=== PATIENT | female | born 1995 | race Caucasian/White ===

== ENCOUNTER 2020-05-29 22:12 | Emergency (ER) | payer OTHER ==
--- NOTE | 2020-05-29 23:09 | EDM.PDOC ---
ED HPI GENERAL MEDICAL PROBLEM - General Chief Complaint: General Stated Complaint: body aches Time Seen by Provider: 05/29/20 23:00 Source of Information: Reports: Patient History Limitations: Reports: No Limitations - History of Present Illness INITIAL COMMENTS - FREE TEXT/NARRATIVE: 25F 20-weeks presents for multiple symptoms. Notes generalized body- aches, abdominal cramping pains, mild chest tightness, and SOB since today. Light non-productive cough. 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 Musculoskeletal History: Reports: None Neurological History: Reports: None Psychiatric History: Reports: None Endocrine/Metabolic History: Reports: None Hematologic History: Reports: None Immunologic History: Reports: None Oncologic (Cancer) History: Reports: None Dermatologic History: Reports: None - Infectious Disease History Infectious Disease History: Reports: None - Past Surgical History Head Surgeries/Procedures: Reports: None HEENT Surgical History: Reports: Oral Surgery Other HEENT Surgeries/Procedures: dental surgery 10 years ago Female Surgical History: Reports: None Social & Family History - Tobacco Use Smoking Status *Q: Never Smoker Second Hand Smoke Exposure: No - Caffeine Use Caffeine Use: Reports: None - Recreational Drug Use Recreational Drug Use: No ED ROS GENERAL - Review of Systems Review Of Systems: Comprehensive ROS is negative, except as noted in HPI. ED EXAM, GENERAL - Physical Exam Exam: See Below Exam Limited By: No Limitations General Appearance: Alert, WD/WN, No Apparent Distress Throat/Mouth: Normal Inspection Head: Atraumatic Respiratory/Chest: No Respiratory Distress, Lungs Clear, Normal Breath Sounds, No Accessory Muscle Use Cardiovascular: Normal Peripheral Pulses GI/Abdominal: Soft, Non-Tender Extremities: Normal Inspection Neurological: Alert Psychiatric: Normal Affect, Normal Mood Skin Exam: Warm, Dry Course - Vital Signs Last Recorded V/S: Last Vital Signs Temp 98.2 F 05/29/20 22:44 Pulse 74 05/30/20 01:01 Resp 16 05/30/20 01:01 BP 110/58 L 05/30/20 01:01 Pulse Ox 99 05/30/20 01:01 - Orders/Labs/Meds Orders: Active Orders 24 hr Category Date Time Status EKG Documentation Completion [RC] STAT Care 05/29/20 23:08 Active Labs: Laboratory Tests 05/29/20 05/29/20 Range/Units 23:15 23:30 Urine Color YELLOW Urine Appearance CLEAR Urine pH 7.0 (5.0-8.0) Ur Specific [place] 1.010 (1.001-1.035) Urine Protein NEGATIVE (NEGATIVE) mg/dL Urine Glucose (UA) NEGATIVE (NEGATIVE) mg/dL Urine Ketones NEGATIVE (NEGATIVE) mg/dL Urine Occult Blood NEGATIVE (NEGATIVE) Urine Nitrite NEGATIVE (NEGATIVE) Urine Bilirubin NEGATIVE (NEGATIVE) Urine Urobilinogen 0.2 (<2.0) EU/dL Ur Leukocyte Esterase NEGATIVE (NEGATIVE) COVID-19 ([place]) NEGATIVE (NEGATIVE) - Re-Assessments/Exams Free Text/Narrative Re-Assessment/Exam: 05/30/20 03:02 Will get CXR, UA, covid-19 test. Will bedside POCUS Free Text/Narrative Re-Assessment/Exam: 05/30/20 03:03 Labs and imaging unremarkable, bedside POCUS normal FHR and normal appearing fetus appropraite for age. WIll d/c with OBGYN f/u early next week. Return precautions discussed. Departure - Departure Time of Disposition: 00:58 Disposition: Home, Self-Care 01 Condition: Good Clinical Impression: Body aches - Discharge Information *PRESCRIPTION DRUG MONITORING PROGRAM REVIEWED*: Not Applicable *COPY OF PRESCRIPTION DRUG MONITORING REPORT IN PATIENT REYNALDO: Not Applicable Instructions: Musculoskeletal Pain Referrals: Mitchel Joshi [Ordering Only Provider] - Anne Garcia MD [Primary Care Provider] - Forms: ED Department Discharge Additional Instructions: The following information is given to patients seen in the emergency department who are being discharged to home. This information is to outline your options for follow-up care. We provide all patients seen in our emergency department with a follow-up referral. The need for follow-up, as well as the timing and circumstances, are variable depending upon the specifics of your emergency department visit. If you don't have a primary care physician on staff, we will provide you with a referral. We always advise you to contact your personal physician following an emergency department visit to inform them of the circumstance of the visit and for follow-up with them and/or the need for any referrals to a consulting specialist. The emergency department will also refer you to a specialist when appropriate. This referral assures that you have the opportunity for follow-up care with a specialist. All of these measure are taken in an effort to provide you with optimal care, which includes your follow-up. Under all circumstances we always encourage you to contact your private physician who remains a resource for coordinating your care. When calling for follow-up care, please make the office aware that this follow-up is from your recent emergency room visit. If for any reason you are refused follow-up, please contact the [facility] Emergency Department at and asked to speak to the emergency department charge nurse. Over the counter medications as needed for pain. Follow up with primary care provider Sepsis Event Note (ED) - Evaluation Sepsis Screening Result: No Definite Risk - Focused Exam Vital Signs: Vital Signs Temp Pulse Resp BP Pulse Ox 05/30/20 01:01 74 16 110/58 L 99 05/29/20 22:44 98.2 F 105 H 18 139/73 98 - My Orders Last 24 Hours: My Active Orders 05/29/20 23:08 EKG Documentation Completion [RC] STAT - Assessment/Plan Last 24 Hours: My Active Orders 05/29/20 23:08 EKG Documentation Completion [RC] STAT
--- NOTE | 2020-05-29 23:42 | CR ---
INDICATION: Chest pain, shortness of breath, body aches, TECHNIQUE: Chest radiograph 1 view COMPARISON: None FINDINGS: Moderate degradation of image quality noted due to body habitus. Mediastinum: The mediastinum is normal in appearance. The heart silhouette is normal in size and morphology. Lung: Both lungs are unremarkable in appearance with small lung volumes. No sign of pleural effusion seen. No pneumothorax is identified. Bone and Soft tissue: Unremarkable for age. IMPRESSION: 1. No acute cardiopulmonary disease is seen. Dictated by: Jamie Aguilar MD @ 05/29/2020 23:40:57 (Electronically Signed)
== END 2020-05-30 01:08 | disposition home or self-care (01) ==
LOC: MW.ED 22:12
DX: O99.89 Other specified diseases and conditions complicating pregnancy, childbirth and the puerperium (principal); R52 Pain, unspecified; Z88.1 Allergy status to other antibiotic agents; Z20.828 Contact with and (suspected) exposure to other viral communicable diseases; Z3A.20 20 weeks gestation of pregnancy
CPT/HCPCS: 71045; 71045-26; 81003; 93005; 99282; 99285-25; U0002

== ENCOUNTER 2020-09-29 00:14 | Inpatient (IN) | payer OTHER ==
[2020-09-29] MEDS ORDERED: Tranexamic Acid 1,000 MG in Sodium Chloride 0.9% 100 ML IV PRN (01:17)
[2020-09-29] MEDS ORDERED: Sodium Chloride 0.9% 2.5 ML Syringe FLUSH PRN (01:17)
[2020-09-29] MEDS ORDERED: Sodium Chloride 0.9% 10 ML SDV IV PRN (01:17)
[2020-09-29] MEDS ORDERED: Ondansetron 4 MG/2 ML SDV IVPUSH PRN (01:17)
[2020-09-29] MEDS ORDERED: Lidocaine 1% 50 ML MDV INJECT PRN (01:17)
[2020-09-29] MEDS ORDERED: Misoprostol 200 MCG Tab PO PRN (01:17)
[2020-09-29] MEDS ORDERED: Carboprost Tromethamine 250 MCG/1 ML Amp IM PRN (01:17)
[2020-09-29] MEDS ORDERED: Butorphanol 1 MG/ML SDV IVPUSH PRN (01:17)
[2020-09-29] MEDS ORDERED: Sodium Chloride 0.9% 10 ML Syringe FLUSH PRN (01:17)
[2020-09-29] MEDS ORDERED: Water For Irrigation,Sterile 1,000 ML Container IRR PRN (01:17)
[2020-09-29] MEDS ORDERED: Nalbuphine 10 MG/1 ML Vial IVPUSH PRN (01:17)
[2020-09-29] MEDS ORDERED: hydrOXYzine Pamoate 25 MG Cap PO PRN (01:23)
[2020-09-29] MEDS ORDERED: Terbutaline 1 MG/ML SDV SUBCUT PRN (01:25)
[2020-09-29] MEDS ORDERED: Oxytocin/0.9 % Sodium Chloride 30 UNIT/500 ML BAG IV SCH ×2 (01:30)
[2020-09-29] MEDS: Lactated Ringers 1,000 ML IV SCH (01:44)
[2020-09-29] MEDS: Misoprostol 25 MCG (1/4 of 100 MCG) Tab PO PRN ×4 (01:51→17:19)
[2020-09-29] MEDS: Misoprostol 25 MCG (1/4 of 100 MCG) Tab VAG PRN ×5 (01:52→17:19)
--- NOTE | 2020-09-29 08:11 | PCM.LDHP ---
L&D History of Present Illness - General Date of Service: 09/29/20 Admit Problem/Dx: Patient Status Order with Admit Dx/Problem 09/29/20 01:17 Patient Status [ADT] Routine Admission Diagnosis/Problem Admission Diagnosis/Problem 09/29/20 08:04 presenting to L&D for IOL at 38 weeks (HOLLY: 10/13/20) due to GDMA2 (currently taking 500 mg metformin TID) and Chronic HTN (treated with Procardia XL 30 mg BID; she is also taking 81 mg aspirin daily). Most recent growth ultrasound on 09/15/20 noted EFW 2982 grams (68th percentile). AB+, Rubella non-immune, and GBS negative. SVE 2cm/60%/-3, soft, posterior per nurse report. Source of Information: Patient History Limitations: Reports: No Limitations - History of Present Illness Pain Score: 6 - Related Data Allergies/Adverse Reactions: Allergies Allergy/AdvReac Type Severity Reaction Status Date / Time cefaclor [From [facility]] Allergy Rash Verified 09/26/20 10:12 Home Medications: Home Meds NIFEdipine [Nifedipine ER] 30 mg PO BID 05/29/20 [History] Aspirin [Low Dose Aspirin EC] 81 mg PO DAILY 08/25/20 [History] metFORMIN [Glucophage] 500 mg PO TIDAC 08/25/20 [History] Pnv No.95/Ferrous Fum/Folic AC [ Vitamin Tablet] 1 tab PO DAILY 09/07/20 [History] Past Medical History - Past Health History Medical/Surgical History: Denies Medical/Surgical History HEENT History: Reports: None Cardiovascular History: Reports: None Respiratory History: Reports: None Gastrointestinal History: Reports: None Genitourinary History: Reports: 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: Musculoskeletal History: Reports: None Neurological History: Reports: None Psychiatric History: Reports: None Endocrine/Metabolic History: Reports: None, Diabetes, Type II Hematologic History: Reports: None Immunologic History: Reports: None Oncologic (Cancer) History: Reports: None Dermatologic History: Reports: None - Infectious Disease History Infectious Disease History: Reports: None - Past Surgical History Head Surgeries/Procedures: Reports: None HEENT Surgical History: Reports: Oral Surgery Other HEENT Surgeries/Procedures: dental surgery 10 years ago Cardiovascular Surgical History: Reports: None Respiratory Surgical History: Reports: None GI Surgical History: Reports: None Female Surgical History: Reports: None Endocrine Surgical History: Reports: None Neurological Surgical History: Reports: None Musculoskeletal Surgical History: Reports: None Oncologic Surgical History: Reports: None Dermatological Surgical History: Reports: None Social & Family History - Family History HEENT: Reports: None Cardiac: Reports: Hypertension Respiratory: Reports: None GI: Reports: None : Reports: None OBGYN: Reports: None Musculoskeletal: Reports: None Neurological: Reports: None Psychiatric: Reports: None Endocrine/Metabolic: Reports: Diabetes, type II Hematologic: Reports: None Immunologic: Reports: None Dermatologic: Reports: None Oncologic: Reports: None - Tobacco Use Tobacco Use Status *Q: Never Tobacco User Second Hand Smoke Exposure: No - Caffeine Use Caffeine Use: Reports: Coffee, Soda - Recreational Drug Use Recreational Drug Use: No H&P Review of Systems - Review of Systems: Review Of Systems: See Below General: Reports: No Symptoms HEENT: Reports: No Symptoms Pulmonary: Reports: No Symptoms Cardiovascular: Reports: No Symptoms Gastrointestinal: Reports: No Symptoms Genitourinary: Reports: No Symptoms Musculoskeletal: Reports: No Symptoms Skin: Reports: No Symptoms Psychiatric: Reports: No Symptoms Neurological: Reports: No Symptoms Hematologic/Lymphatic: Reports: No Symptoms Immunologic: Reports: No Symptoms L&D Exam - Exam Exam: See Below - Vital Signs Weight: 273 lb - OB Specific Contraction Intensity: Moderate Movement: Active Heart Tones: Present Heart Rate (FHR) Variability: Moderate (6-25 bmp) Presentation: Vertex - Sanchez Score Sanchez Score Cervix Position: Posterior Sanchez Score Consistency: Soft Sanchez Score Effacement: 51-70% Sanchez Score Dilation: 1-2 cm Sanchez Score 's Station: -3 Sanchez Score Total: 5 - Exam General: Alert, Oriented Lungs: Clear to Auscultation, Normal Respiratory Effort Cardiovascular: Regular Rate, Regular Rhythm GI/Abdominal Exam: Soft, Non-Tender Rectal Exam: Deferred Genitourinary: Deferred Back Exam: Normal Inspection, Full Range of Motion Extremities: Normal Inspection, Normal Range of Motion, Non-Tender, Normal Capillary Refill Skin: Warm, Dry, Intact Neurological: Strength Equal Bilateral, Normal Gait, Normal Speech, Normal Tone, Sensation Intact Psychiatric: Alert, Normal Affect, Normal Mood - Patient Data Lab Results Last 24 hrs: Laboratory Results - last 24 hr 09/29/20 09/29/20 09/29/20 Range/Units 00:50 00:50 02:05 WBC 10.39 (4.0-11.0) K/uL RBC 4.32 (4.30-5.90) M/uL Hgb 11.6 L (12.0-16.0) g/dL Hct 35.9 L (36.0-46.0) % MCV 83.1 (80.0-98.0) fL MCH 26.9 L (27.0-32.0) pg MCHC 32.3 (31.0-37.0) g/dL RDW Std Deviation 50.6 (28.0-62.0) fl RDW Coeff of Pop 17 H (11.0-15.0) % Plt Count 240 (150-400) K/uL MPV 10.90 (7.40-12.00) fL Nucleated RBC % 0.0 /100WBC Nucleated RBCs # 0 K/uL POC Glucose 182 H (60-110) mg/dL Blood Type AB POSITIVE Antibody Screen NEGATIVE 09/29/20 Range/Units 03:35 WBC (4.0-11.0) K/uL RBC (4.30-5.90) M/uL Hgb (12.0-16.0) g/dL Hct (36.0-46.0) % MCV (80.0-98.0) fL MCH (27.0-32.0) pg MCHC (31.0-37.0) g/dL RDW Std Deviation (28.0-62.0) fl RDW Coeff of Pop (11.0-15.0) % Plt Count (150-400) K/uL MPV (7.40-12.00) fL Nucleated RBC % /100WBC Nucleated RBCs # K/uL POC Glucose 170 H (60-110) mg/dL Blood Type Antibody Screen Result Diagrams: 09/29/20 00:50 - Problem List (1) Supervision of normal IUP (intrauterine ) in primigravida SNOMED Code(s): 26823037, 053518247, 493967609, 072204660 ICD Code: Z34.00 - ENCNTR FOR SUPRVSN OF NORMAL FIRST , UNSP TRIMESTER Status: Acute Priority: High Current Visit: Yes Qualifiers: Trimester: third trimester Qualified Code(s): Z34.03 - Encounter for supervision of normal first , third trimester (2) Chronic hypertension affecting SNOMED Code(s): 78643735 ICD Code: O10.919 - UNSP PRE-EXISTING HTN COMP , UNSP TRIMESTER Status: Acute Priority: High Current Visit: No (3) Gestational diabetes mellitus (GDM) treated with oral hypoglycemic therapy SNOMED Code(s): 44219573 ICD Code: O24.415 - GESTATNL DIABETES IN PREG, CTRL BY ORAL HYPOGLYCEMIC DRUGS Status: Acute Priority: High Current Visit: No Problem List Initiated/Reviewed/Updated: Yes Orders Last 24hrs: Active Orders 24 hr Category Date Time Status Patient Status [ADT] Routine ADT 09/29/20 01:17 Active Bedrest Bathroom Privileges [RC] ASDIRECTED Care 09/29/20 01:25 Active May Shower [RC] ASDIRECTED Care 09/29/20 01:17 Active Notify Provider [RC] PRN Care 09/29/20 01:17 Active Notify Provider [RC] PRN Care 09/29/20 01:25 Active Notify Provider [RC] PRN Care 09/29/20 01:25 Active Notify Provider [RC] STAT Care 09/29/20 01:25 Active Oxygen Therapy [RC] ASDIRECTED Care 09/29/20 01:25 Active Up ad Valentina [RC] ASDIRECTED Care 09/29/20 01:17 Active Vital Signs [RC] PER UNIT ROUTINE Care 09/29/20 01:17 Active Vital Signs [RC] PER UNIT ROUTINE Care 09/29/20 01:25 Active Clear Liquid Diet [DIET] Diet 09/29/20 Breakfast Active RPR (SYPHILIS SERO) W/ RFLX [REF] Routine Lab 09/29/20 00:50 Received Butorphanol [Stadol] Med 09/29/20 01:17 Active 1 mg IVPUSH Q1H PRN Carboprost Tromethamine [Hemabate DS] Med 09/29/20 01:17 Active 250 mcg IM ASDIRECTED PRN Lactated Ringers [Ringers, Lactated] 1,000 ml Med 09/29/20 01:30 Active IV ASDIRECTED Lidocaine 1% [Xylocaine 1%] Med 09/29/20 01:17 Active 50 ml INJECT ONETIME PRN Nalbuphine [Nubain] Med 09/29/20 01:17 Active 10 mg IVPUSH Q1H PRN Ondansetron [Zofran] Med 09/29/20 01:17 Active 4 mg IVPUSH Q6H PRN Oxytocin/0.9 % Sodium Chloride [Oxytocin 30 Unit/500 ML Med 09/29/20 01:30 Active -NS] 30 unit in 500 ml IV TITRATE Oxytocin/0.9 % Sodium Chloride [Oxytocin 30 Unit/500 ML Med 09/29/20 01:30 Active -NS] 30 unit in 500 ml IV TITRATE Sodium Chloride 0.9% [Normal Saline] Med 09/29/20 01:17 Active 10 ml IV ASDIRECTED PRN Sodium Chloride 0.9% [Saline Flush] Med 09/29/20 01:17 Active 10 ml FLUSH ASDIRECTED PRN Sodium Chloride 0.9% [Saline Flush] Med 09/29/20 01:17 Active 2.5 ml FLUSH ASDIRECTED PRN Terbutaline [Brethine] Med 09/29/20 01:25 Active 0.25 mg SUBCUT ASDIRECTED PRN Tranexamic Acid [Cyklokapron] 1,000 mg Med 09/29/20 01:17 Active Sodium Chloride 0.9% [Normal Saline] 100 ml IV ONETIME Water For Irrigation,Sterile [Sterile Water for Med 09/29/20 01:17 Active Irrigation] 1,000 ml IRR ASDIRECTED PRN hydrOXYzine pamoate [Vistaril] Med 09/29/20 01:23 Active 50 mg PO ONETIME PRN miSOPROStoL [Cytotec] Med 09/29/20 01:17 Active 200 mcg PO ONETIME PRN miSOPROStoL [Cytotec] Med 09/29/20 01:25 Active 25 mcg PO Q4H PRN miSOPROStoL [Cytotec] Med 09/29/20 01:25 Active 25 mcg VAG Q4H PRN Scalp Electrode [WOMSER] Per Unit Routine Oth 09/29/20 01:17 Ordered Medication Administration Instruction [OM.PC] Q3H Oth 09/29/20 01:30 Ordered Peripheral IV Insertion Adult [OM.PC] Routine Oth 09/29/20 01:17 Ordered Resuscitation Status Routine Resus Stat 09/29/20 01:17 Ordered Medication Orders Butorphanol Tartrate (Stadol) 1 mg IVPUSH Q1H PRN PRN Reason: Pain Last Admin: 09/29/20 07:57 Dose: 1 mg Documented by: TY Carboprost Tromethamine (Hemabate Ds) 250 mcg IM ASDIRECTED PRN PRN Reason: Post Hemorrhage Hydroxyzine Pamoate (Vistaril) 50 mg PO ONETIME PRN PRN Reason: Sleep Oxytocin/Sodium Chloride (Oxytocin 30 Unit/500 Ml-Ns) 30 unit in 500 mls @ 999 mls/hr IV TITRATE RICHARD Tranexamic Acid 1,000 mg/ (Sodium Chloride) 110 mls @ 660 mls/hr IV ONETIME PRN PRN Reason: Bleeding Lactated Ringer's (Ringers, Lactated) 1,000 mls @ 150 mls/hr IV ASDIRECTED RICHARD Last Infusion: 09/29/20 02:09 Dose: 0 mls/hr Documented by: Admin: 09/29/20 01:44 Dose: 150 mls/hr Documented by: MEGAN Oxytocin/Sodium Chloride (Oxytocin 30 Unit/500 Ml-Ns) 30 unit in 500 mls @ 2 mls/hr IV TITRATE RICHARD; Protocol Lidocaine HCl (Xylocaine 1%) 50 ml INJECT ONETIME PRN PRN Reason: Laceration repair Misoprostol (Cytotec) 200 mcg PO ONETIME PRN PRN Reason: Post Hemorrhage Misoprostol (Cytotec) 25 mcg VAG Q4H PRN PRN Reason: Cervical Ripening Last Admin: 09/29/20 01:52 Dose: 25 mcg Documented by: MEGAN Misoprostol (Cytotec) 25 mcg PO Q4H PRN PRN Reason: Cervical Ripening Last Admin: 09/29/20 01:51 Dose: 25 mcg Documented by: MEGAN Nalbuphine HCl (Nubain) 10 mg IVPUSH Q1H PRN PRN Reason: Pain (severe 7-10) Ondansetron HCl (Zofran) 4 mg IVPUSH Q6H PRN PRN Reason: Nausea/Vomiting Sodium Chloride (Saline Flush) 10 ml FLUSH ASDIRECTED PRN PRN Reason: Keep Vein Open Sodium Chloride (Saline Flush) 2.5 ml FLUSH ASDIRECTED PRN PRN Reason: Keep Vein Open Sodium Chloride (Normal Saline) 10 ml IV ASDIRECTED PRN PRN Reason: IV Use Sterile Water (Sterile Water For Irrigation) 1,000 ml IRR ASDIRECTED PRN PRN Reason: delivery Terbutaline Sulfate (Brethine) 0.25 mg SUBCUT ASDIRECTED PRN PRN Reason: Tacysystole Assessment/Plan Comment:: Admit A: presenting to L&D for IOL at 38 weeks (HOLLY: 10/13/20) due to GDMA2 (currently taking 500 mg metformin TID) and Chronic HTN (treated with Procardia XL 30 mg BID; she is also taking 81 mg aspirin daily). Most recent growth ultrasound on 09/15/20 noted EFW 2982 grams (68th percentile). AB+, Rubella non-immune, and GBS negative. SVE 2cm/60%/-3, soft, posterior per nurse report. P: Anticipate ; epidural PRN; blood glucose q4hr or symptomatic; Dr. Miramontes updated
[2020-09-29] MEDS: NIFEdipine 30 MG Tab.ER PO SCH ×2 (08:32→20:25)
[2020-09-30] MEDS: Lactated Ringers 1,000 ML IV SCH (00:59)
--- NOTE | 2020-09-30 08:04 | PCM.PNLD ---
Labor Progress Note - VS & Meds Vital Signs: Last Vital Signs Temp Pulse Resp BP 146/93 H 09/29/20 20:25 Pulse Ox Active Medications: Current Medications Butorphanol Tartrate (Stadol) 1 mg IVPUSH Q1H PRN PRN Reason: Pain Last Admin: 09/29/20 07:57 Dose: 1 mg Documented by: Carboprost Tromethamine (Hemabate Ds) 250 mcg IM ASDIRECTED PRN PRN Reason: Post Hemorrhage Hydroxyzine Pamoate (Vistaril) 50 mg PO ONETIME PRN PRN Reason: Sleep Last Admin: 09/29/20 21:56 Dose: 50 mg Documented by: Oxytocin/Sodium Chloride (Oxytocin 30 Unit/500 Ml-Ns) 30 unit in 500 mls @ 999 mls/hr IV TITRATE RICHARD Tranexamic Acid 1,000 mg/ (Sodium Chloride) 110 mls @ 660 mls/hr IV ONETIME PRN PRN Reason: Bleeding Lactated Ringer's (Ringers, Lactated) 1,000 mls @ 150 mls/hr IV ASDIRECTED RICHARD Last Admin: 09/30/20 00:59 Dose: 75 mls/hr Documented by: Oxytocin/Sodium Chloride (Oxytocin 30 Unit/500 Ml-Ns) 30 unit in 500 mls @ 2 mls/hr IV TITRATE RICHARD; Protocol Lidocaine HCl (Xylocaine 1%) 50 ml INJECT ONETIME PRN PRN Reason: Laceration repair Misoprostol (Cytotec) 200 mcg PO ONETIME PRN PRN Reason: Post Hemorrhage Misoprostol (Cytotec) 25 mcg VAG Q4H PRN PRN Reason: Cervical Ripening Last Admin: 09/29/20 17:19 Dose: 25 mcg Documented by: Misoprostol (Cytotec) 25 mcg PO Q4H PRN PRN Reason: Cervical Ripening Last Admin: 09/29/20 17:19 Dose: 25 mcg Documented by: Nalbuphine HCl (Nubain) 10 mg IVPUSH Q1H PRN PRN Reason: Pain (severe 7-10) Last Admin: 09/29/20 22:53 Dose: 10 mg Documented by: Nifedipine (Procardia Xl) 30 mg PO BID RICHARD Last Admin: 09/29/20 20:25 Dose: 30 mg Documented by: Ondansetron HCl (Zofran) 4 mg IVPUSH Q6H PRN PRN Reason: Nausea/Vomiting Sodium Chloride (Saline Flush) 10 ml FLUSH ASDIRECTED PRN PRN Reason: Keep Vein Open Sodium Chloride (Saline Flush) 2.5 ml FLUSH ASDIRECTED PRN PRN Reason: Keep Vein Open Sodium Chloride (Normal Saline) 10 ml IV ASDIRECTED PRN PRN Reason: IV Use Sterile Water (Sterile Water For Irrigation) 1,000 ml IRR ASDIRECTED PRN PRN Reason: delivery Terbutaline Sulfate (Brethine) 0.25 mg SUBCUT ASDIRECTED PRN PRN Reason: Tacysystole - Uterine Contractions Uterine Monitoring Mode: External [place] Contraction Intensity: Moderate Uterine Resting Tone: Soft - Monitoring Heart Rate (FHR) Baseline: 140 Heart Rate (FHR) Variability: Moderate (6-25 bmp) Accelerations: Present, 15x15 Decelerations: None - Vaginal Exam Dilation (cm): 2-3 Effacement (Percent): 70 Station: -3 Cervical Position: Posterior - Labor Progress (Free Text) Labor Progress: After four doses of cytotec (at 0152, 0917, 1309, and 1719), patient's cervix was 2-3cm/70%/-3, posterior; no significant change since the first dose. 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 After consultation with Dr. Miramontes, it was decided to let patient sleep through the night and resume active induction in AM. This AM, patient reports having slept well, still feeling contractions and good movement. Cervix unchanged. Dr. Miramontes will come to assess patient to see whether he would be able to place a Cook catheter and determine what his plan is moving forward.
[2020-09-30] MEDS ORDERED: Citric Acid/Sodium Citrate Solution 30 ML Cup PO ONE (10:43)
[2020-09-30] MEDS ORDERED: Oxytocin/0.9 % Sodium Chloride 30 UNIT/500 ML BAG IV SCH (10:45)
[2020-09-30] MEDS ORDERED: Lactated Ringers 1,000 ML IV SCH ×2 (10:45→16:45)
--- NOTE | 2020-09-30 13:34 | PCM.PREANE ---
Preanesthetic Assessment - Anesthesia/Transfusion/Family Hx Anesthesia History: Prior Anesthesia Without Reaction Family History of Anesthesia Reaction: No Transfusion History: No Prior Transfusion(s) Type of Transfusion Reactions: Reports: Unknown - Review of Systems General: No Symptoms Pulmonary: No Symptoms Cardiovascular: No Symptoms Gastrointestinal: Abdominal Pain Neurological: No Symptoms Other: Reports: None - Physical Assessment NPO Status Date: 09/29/20 Vital Signs: Last Vital Signs Temp Pulse Resp BP 146/93 H 09/29/20 20:25 Pulse Ox Height: 5 ft 4 in Weight: 123.831 kg ASA Class: 2 Mental Status: Alert & Oriented x3 Airway Class: Mallampati = 2 Dentition: Reports: Normal Dentition ROM/Head Extension: Full Lungs: Clear to Auscultation, Normal Respiratory Effort Cardiovascular: Regular Rate, Regular Rhythm - Lab Values: Laboratory Last Values WBC 10.39 K/uL (4.0-11.0) 09/29/20 00:50 RBC 4.32 M/uL (4.30-5.90) 09/29/20 00:50 Hgb 11.6 g/dL (12.0-16.0) L 09/29/20 00:50 Hct 35.9 % (36.0-46.0) L 09/29/20 00:50 MCV 83.1 fL (80.0-98.0) 09/29/20 00:50 MCH 26.9 pg (27.0-32.0) L 09/29/20 00:50 MCHC 32.3 g/dL (31.0-37.0) 09/29/20 00:50 RDW Std Deviation 50.6 fl (28.0-62.0) 09/29/20 00:50 RDW Coeff of Pop 17 % (11.0-15.0) H 09/29/20 00:50 Plt Count 240 K/uL (150-400) 09/29/20 00:50 MPV 10.90 fL (7.40-12.00) 09/29/20 00:50 Nucleated RBC % 0.0 /100WBC 09/29/20 00:50 Nucleated RBCs # 0 K/uL 09/29/20 00:50 POC Glucose 88 mg/dL (60-110) 09/30/20 07:48 Blood Type AB POSITIVE 09/29/20 00:50 Antibody Screen NEGATIVE 12/07/20 00:50 - Allergies Allergies/Adverse Reactions: Allergies Allergy/AdvReac Type Severity Reaction Status Date / Time cefaclor [From Ceclor] Allergy Rash Verified 09/26/20 10:12 - Blood Blood Available: Yes - Anesthesia Plan Pre-Op Medication Ordered: Antacids - Acknowledgements Anesthesia Type Planned: Spinal Pt an Appropriate Candidate for the Planned Anesthesia: Yes Alternatives and Risks of Anesthesia Discussed w Pt/Guardian: Yes Pt/Guardian Understands and Agrees with Anesthesia Plan: Yes Additional Comments: , C section for failed induction. PMH sig for chronic hypertension and gestational diabetes. On metformin, procardia and ASA, COVID negative, 273#, allergy to Ceclor. 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: Musculoskeletal History: Reports: None Neurological History: Reports: None Psychiatric History: Reports: None Endocrine/Metabolic History: Reports: None, Diabetes, Type II Hematologic History: Reports: None Immunologic History: Reports: None Oncologic (Cancer) History: Reports: None Dermatologic History: Reports: None - Infectious Disease History Infectious Disease History: Reports: None - Past Surgical History Head Surgeries/Procedures: Reports: None HEENT Surgical History: Reports: Oral Surgery Other HEENT Surgeries/Procedures: dental surgery 10 years ago Cardiovascular Surgical History: Reports: None Respiratory Surgical History: Reports: None GI Surgical History: Reports: None Female Surgical History: Reports: None Endocrine Surgical History: Reports: None Neurological Surgical History: Reports: None Musculoskeletal Surgical History: Reports: None Oncologic Surgical History: Reports: None Dermatological Surgical History: Reports: None - SUBSTANCE USE Tobacco Use Status *Q: Never Tobacco User Second Hand Smoke Exposure: No Recreational Drug Use History: No - HOME MEDS Home Medications: Home Meds NIFEdipine [Nifedipine ER] 30 mg PO BID 05/29/20 [History] Aspirin [Low Dose Aspirin EC] 81 mg PO DAILY 08/25/20 [History] metFORMIN [Glucophage] 500 mg PO TIDAC 08/25/20 [History] Pnv No.95/Ferrous Fum/Folic AC [ Vitamin Tablet] 1 tab PO DAILY 09/07/20 [History] - CURRENT (IN HOUSE) MEDS Current Meds: Current Medications Butorphanol Tartrate (Stadol) 1 mg IVPUSH Q1H PRN PRN Reason: Pain Last Admin: 09/29/20 07:57 Dose: 1 mg Documented by: Carboprost Tromethamine (Hemabate Ds) 250 mcg IM ASDIRECTED PRN PRN Reason: Post Hemorrhage Hydroxyzine Pamoate (Vistaril) 50 mg PO ONETIME PRN PRN Reason: Sleep Last Admin: 09/29/20 21:56 Dose: 50 mg Documented by: Oxytocin/Sodium Chloride (Oxytocin 30 Unit/500 Ml-Ns) 30 unit in 500 mls @ 999 mls/hr IV TITRATE RICHARD Tranexamic Acid 1,000 mg/ (Sodium Chloride) 110 mls @ 660 mls/hr IV ONETIME PRN PRN Reason: Bleeding Lactated Ringer's (Ringers, Lactated) 1,000 mls @ 150 mls/hr IV ASDIRECTED RICHARD Last Admin: 09/30/20 00:59 Dose: 75 mls/hr Documented by: Oxytocin/Sodium Chloride (Oxytocin 30 Unit/500 Ml-Ns) 30 unit in 500 mls @ 2 mls/hr IV TITRATE RICHARD; Protocol Lactated Ringer's (Ringers, Lactated) 1,000 mls @ 500 mls/hr IV BOLUS RICHARD Oxytocin/Sodium Chloride (Oxytocin 30 Unit/500 Ml-Ns) 30 unit in 500 mls @ 250 mls/hr IV TITRATE RICHARD Cefazolin Sodium/Dextrose 2 gm (/ Premix) 50 mls @ 100 mls/hr IV ONETIME ONE Stop: 09/30/20 15:29 Lidocaine HCl (Xylocaine 1%) 50 ml INJECT ONETIME PRN PRN Reason: Laceration repair Misoprostol (Cytotec) 200 mcg PO ONETIME PRN PRN Reason: Post Hemorrhage Misoprostol (Cytotec) 25 mcg VAG Q4H PRN PRN Reason: Cervical Ripening Last Admin: 09/29/20 17:19 Dose: 25 mcg Documented by: Misoprostol (Cytotec) 25 mcg PO Q4H PRN PRN Reason: Cervical Ripening Last Admin: 09/29/20 17:19 Dose: 25 mcg Documented by: Nalbuphine HCl (Nubain) 10 mg IVPUSH Q1H PRN PRN Reason: Pain (severe 7-10) Last Admin: 09/29/20 22:53 Dose: 10 mg Documented by: Nifedipine (Procardia Xl) 30 mg PO BID RICHARD Last Admin: 09/29/20 20:25 Dose: 30 mg Documented by: Ondansetron HCl (Zofran) 4 mg IVPUSH Q6H PRN PRN Reason: Nausea/Vomiting Sodium Chloride (Saline Flush) 10 ml FLUSH ASDIRECTED PRN PRN Reason: Keep Vein Open Sodium Chloride (Saline Flush) 2.5 ml FLUSH ASDIRECTED PRN PRN Reason: Keep Vein Open Sodium Chloride (Normal Saline) 10 ml IV ASDIRECTED PRN PRN Reason: IV Use Sterile Water (Sterile Water For Irrigation) 1,000 ml IRR ASDIRECTED PRN PRN Reason: delivery Terbutaline Sulfate (Brethine) 0.25 mg SUBCUT ASDIRECTED PRN PRN Reason: Tacysystole Discontinued Medications Citric Acid/Sodium Citrate (Bicitra Solution) 30 ml PO ONETIME ONE Stop: 09/30/20 10:44
[2020-09-30] MEDS ORDERED: ceFAZolin 2 GM in Premix Bag 1 BAG IV ONE (15:00)
[2020-09-30] MEDS ORDERED: Octyl 2-Cyanoacrylate 1 Tube ONE (15:05)
[2020-09-30] MEDS ORDERED: Ondansetron 4 MG/2 ML SDV ONE (15:08)
[2020-09-30] MEDS ORDERED: Morphine PF 10 MG/10 ML SDV ONE (15:08)
[2020-09-30] MEDS ORDERED: Oxytocin 10 Units/1 ML SDV ONE (15:08)
[2020-09-30] MEDS ORDERED: ceFAZolin/Dextrose,Iso-Osmotic 2 GM/50 ML Duplex Bag IV ONE (16:00)
[2020-09-30] MEDS ORDERED: ePHEDrine 50 MG/ML SDV ONE (16:16)
[2020-09-30] MEDS ORDERED: Ketorolac 30 MG/ML SDV ONE (16:30)
[2020-09-30] MEDS ORDERED: Oxytocin 10 Units/1 ML SDV IM PRN (16:39)
[2020-09-30] MEDS ORDERED: Tranexamic Acid 1,000 MG in Sodium Chloride 0.9% 100 ML IV PRN (16:39)
[2020-09-30] MEDS ORDERED: Misoprostol 200 MCG Tab RECTAL PRN (16:39)
[2020-09-30] MEDS ORDERED: Bisacodyl 10 MG Supp RECTAL PRN (16:39)
[2020-09-30] MEDS ORDERED: Ondansetron 4 MG/2 ML SDV IVPUSH PRN ×2 (16:39→19:15)
[2020-09-30] MEDS ORDERED: diphenhydrAMINE 50 MG/ML SDV IVPUSH PRN ×2 (16:39→19:15)
[2020-09-30] MEDS ORDERED: Methylergonovine 0.2 MG/1 ML Amp IM PRN (16:39)
[2020-09-30] MEDS ORDERED: Lanolin 100% Cream 7 GM Tube TOP PRN (16:39)
--- NOTE | 2020-09-30 16:43 | PCM.OPNOTE ---
- General Post-Op/Procedure Note Date of Surgery/Procedure: 09/30/20 Operative Procedure(s): Primary C/section. Pre Op Diagnosis: IUP 38wks faild induction. Post-Op Diagnosis: Same Anesthesia Technique: Spinal Primary Surgeon: Wayne Miramontes [employer] Cable Tool Operator: Samara Frederick EBL in mLs: 700 Complications: None Condition: Good Free Text/Narrative:: Intake & Output 09/30/20 09/30/20 09/30/20 06:59 14:59 22:59 Intake Total 1000 Balance 1000
[2020-09-30] MEDS: Ketorolac 30 MG/ML SDV IVPUSH SCH ×2 (17:35→22:54)
[2020-09-30] MEDS ORDERED: fentaNYL 100 MCG/2 ML SDV IVPUSH PRN (19:15)
[2020-09-30] MEDS ORDERED: Nalbuphine 10 MG/1 ML Vial IVPUSH PRN (19:15)
[2020-09-30] MEDS ORDERED: Naloxone 0.4 MG/ML Syringe IVPUSH PRN (19:15)
[2020-09-30] MEDS ORDERED: Acetaminophen/oxyCODONE 325-5 MG Tab PO PRN (19:15)
--- NOTE | 2020-09-30 19:19 | PCM.POSTAN ---
POST ANESTHESIA ASSESSMENT - MENTAL STATUS Mental Status: Alert, Oriented - VITAL SIGNS Vital Signs: Last Vital Signs Temp 36.1 C 09/30/20 16:58 Pulse 107 H 09/30/20 17:54 Resp 20 09/30/20 17:54 BP 156/74 H 09/30/20 17:54 Pulse Ox 98 09/30/20 17:54 - RESPIRATORY Respiratory Status: Respiratory Rate WNL, Airway Patent, O2 Saturation Stable - CARDIOVASCULAR CV Status: Pulse Rate WNL, Blood Pressure Stable - GASTROINTESTINAL GI Status: No Symptoms - PAIN Pain Score: 0 - POST OP HYDRATION Hydration Status: Adequate & Stable - OBSERVATIONS Free Text/Narrative:: No anesthesia problems
[2020-09-30] MEDS: NIFEdipine 30 MG Tab.ER PO SCH ×2 (19:28→21:05)
[2020-09-30] MEDS: Docusate Sodium 100 MG Cap PO SCH (21:08)
--- NOTE | 2020-10-01 07:35 | PCM48HPAN ---
Post Anesthesia Note - EVALUATION WITHIN 48HRS OF ANESTHETIC Vital Signs in Normal Range: Yes Patient Participated in Evaluation: Yes Respiratory Function Stable: Yes Airway Patent: Yes Cardiovascular Function Stable: Yes Hydration Status Stable: Yes Pain Control Satisfactory: Yes Nausea and Vomiting Control Satisfactory: Yes Mental Status Recovered: Yes Vital Signs: Last Vital Signs Temp 97.4 F 10/01/20 01:00 Pulse 102 H 10/01/20 07:00 Resp 14 10/01/20 07:00 BP 127/85 10/01/20 01:00 Pulse Ox 95 10/01/20 07:00 - COMMENTS/OBSERVATIONS Free Text/Narrative:: Pt denies any problems with anesthesia. VSS
--- NOTE | 2020-10-01 08:31 | OR ---
SURGEON: Wayne Miramontes MD DATE OF PROCEDURE: 09/30/2020 PREOPERATIVE DIAGNOSES: Intrauterine 38 plus 3 weeks; history of chronic hypertension; the patient had type 2 gestational diabetes, inadequately controlled. POSTOPERATIVE DIAGNOSES: Intrauterine 38 plus 3 weeks; history of chronic hypertension; the patient had type 2 gestational diabetes, inadequately controlled. OPERATION PERFORMED: Primary low-transverse section. PRIMARY SURGEON: Wayne Miramontes MD RETAIL MERCHANDISING MANAGER: Samara Lara. ANESTHESIA: Spinal. ESTIMATED BLOOD LOSS: 700 mL. COMPLICATIONS: None. FINDINGS: Female fetus. score reported to be 8 and 9. INDICATION FOR SURGERY: This patient is 25. She is primigravida. She has gestational diabetes. She is on metformin. She is not compliant and her diabetes is inadequately controlled. She has chronic hypertension. Because of this reason, the patient is admitted for elective induction. She was induced with Cytotec for 2 days. The patient did not progress beyond 1 cm and the head was out of the pelvis and not engaged. The patient was given the option and she elected to have primary low-transverse section. PROCEDURE IN DETAIL: The patient was brought to the OR, properly identified. After adequate level of spinal anesthesia with a Claudio catheter in the bladder, the patient was prepped and draped in sterile fashion as usual and then low transverse Pfannenstiel skin incision was done. Royal's fascia, rectus fascia were opened in direction of the incision. The 2 recti muscles were . Peritoneal cavity was entered. Bladder flap was raised in the usual manner pushing the bladder away from the lower uterine segment. Low transverse uterine incision extended manually with hand. The fetus was in the vertex position, delivered without any problem, handed to the early childhood lead teacher and the resuscitating team was present at the time of the delivery. The fetus cried immediately. score reported to be 8 and 9. Placenta delivered spontaneously, complete, and intact, and then repair of the lower uterine segment done with 2-0 Vicryl continuous interlocking in 2 layers. Reperitonealization done with 3-0 Vicryl continuous. Then, the peritoneal cavity evacuated completely from all blood and blood clot and treated with 3-0 Vicryl continuous and the rectus fascia was closed with #1 PDS double strand continuous. Royal fascia was closed with 3-0 Vicryl continuous and the skin closed with 3-0 Vicryl in a subcuticular fashion. REJI dressing is applied. Instrument and sponge counts were correct. The patient tolerated the procedure well, went to recovery room in stable general condition. JACQUI CAIN /[id number]
--- NOTE | 2020-10-01 08:44 | PCM.PNPP ---
- General Info Date of Service: 09/27/20 Functional Status: Reports: Pain Controlled - Review of Systems General: Reports: No Symptoms HEENT: Reports: No Symptoms Pulmonary: Reports: No Symptoms Cardiovascular: Reports: No Symptoms Gastrointestinal: Reports: No Symptoms Genitourinary: Reports: No Symptoms Musculoskeletal: Reports: No Symptoms Skin: Reports: No Symptoms Neurological: Reports: No Symptoms Psychiatric: Reports: No Symptoms - General Info Date of Service: 09/30/20 - Patient Data Vital Signs - Most Recent: Last Vital Signs Temp 36.4 C 10/01/20 08:00 Pulse 106 H 10/01/20 08:00 Resp 15 10/01/20 08:00 BP 158/90 H 10/01/20 08:00 Pulse Ox 99 10/01/20 08:00 Weight - Most Recent: 123.831 kg I&O - Last 24 Hours: Intake & Output 09/30/20 10/01/20 10/01/20 22:59 06:59 14:59 Intake Total 2000 Output Total 50 250 1100 Balance 1950 -250 -1100 Lab Results - Last 24 Hours: Laboratory Results - last 24 hr 09/30/20 10/01/20 Range/Units 23:04 06:18 Hgb 10.4 L (12.0-16.0) g/dL Hct 32.8 L (36.0-46.0) % POC Glucose 114 H (60-110) mg/dL Med Orders - Current: Current Medications Bisacodyl (Dulcolax) 10 mg RECTAL ONETIME PRN PRN Reason: Constipation Butorphanol Tartrate (Stadol) 1 mg IVPUSH Q1H PRN PRN Reason: Pain Last Admin: 09/29/20 07:57 Dose: 1 mg Documented by: Carboprost Tromethamine (Hemabate Ds) 250 mcg IM ASDIRECTED PRN PRN Reason: Post Hemorrhage Diphenhydramine HCl (Benadryl) 25 mg IVPUSH Q6H PRN PRN Reason: Itching or Nausea Diphenhydramine HCl (Benadryl) 25 mg IVPUSH Q4H PRN PRN Reason: Itching Stop: 10/01/20 19:15 Last Admin: 09/30/20 22:59 Dose: 25 mg Documented by: Docusate Sodium (Colace) 100 mg PO BID RICHARD Last Admin: 09/30/20 21:08 Dose: 100 mg Documented by: Emollient Ointment (Lansinoh Hpa) 0 gm TOP ASDIRECTED PRN PRN Reason: Sore Nipples Fentanyl (Sublimaze) 50 mcg IVPUSH Q1H PRN PRN Reason: Pain (severe 7-10) Hydroxyzine Pamoate (Vistaril) 50 mg PO ONETIME PRN PRN Reason: Sleep Last Admin: 09/29/20 21:56 Dose: 50 mg Documented by: Oxytocin/Sodium Chloride (Oxytocin 30 Unit/500 Ml-Ns) 30 unit in 500 mls @ 999 mls/hr IV TITRATE RICHARD Tranexamic Acid 1,000 mg/ (Sodium Chloride) 110 mls @ 660 mls/hr IV ONETIME PRN PRN Reason: Bleeding Lactated Ringer's (Ringers, Lactated) 1,000 mls @ 150 mls/hr IV ASDIRECTED [facility] Last Admin: 09/30/20 00:59 Dose: 75 mls/hr Documented by: Oxytocin/Sodium Chloride (Oxytocin 30 Unit/500 Ml-Ns) 30 unit in 500 mls @ 2 mls/hr IV TITRATE [facility]; Protocol Lactated Ringer's (Ringers, Lactated) 1,000 mls @ 500 mls/hr IV BOLUS [facility] Last Admin: 09/30/20 14:48 Dose: 999 mls/hr Documented by: Oxytocin/Sodium Chloride (Oxytocin 30 Unit/500 Ml-Ns) 30 unit in 500 mls @ 250 mls/hr IV TITRATE RICHARD Lactated Ringer's (Ringers, Lactated) 1,000 mls @ 125 mls/hr IV ASDIRECTED [facility] Last Infusion: 10/01/20 01:08 Dose: 25 mls/hr Documented by: Tranexamic Acid 1,000 mg/ (Sodium Chloride) 110 mls @ 660 mls/hr IV ONETIME PRN PRN Reason: Bleeding Ibuprofen (Motrin) 800 mg PO Q8H PRN PRN Reason: mild pain or fever Ketorolac Tromethamine (Toradol) 30 mg IVPUSH Q6H [facility] Stop: 10/01/20 16:46 Last Admin: 09/30/20 22:54 Dose: 30 mg Documented by: Lidocaine HCl (Xylocaine 1%) 50 ml INJECT ONETIME PRN PRN Reason: Laceration repair Methylergonovine Maleate (Methergine) 0.2 mg IM ONETIME PRN PRN Reason: Excessive Vaginal Bleeding Misoprostol (Cytotec) 200 mcg PO ONETIME PRN PRN Reason: Post Hemorrhage Misoprostol (Cytotec) 25 mcg VAG Q4H PRN PRN Reason: Cervical Ripening Last Admin: 09/29/20 17:19 Dose: 25 mcg Documented by: Misoprostol (Cytotec) 25 mcg PO Q4H PRN PRN Reason: Cervical Ripening Last Admin: 09/29/20 17:19 Dose: 25 mcg Documented by: Misoprostol (Cytotec) 1,000 mcg RECTAL ONETIME PRN PRN Reason: excessive bleeding Nalbuphine HCl (Nubain) 10 mg IVPUSH Q1H PRN PRN Reason: Pain (severe 7-10) Last Admin: 09/29/20 22:53 Dose: 10 mg Documented by: Nalbuphine HCl (Nubain) 5 mg IVPUSH ASDIRECTED PRN PRN Reason: Itching Last Admin: 10/01/20 01:03 Dose: 5 mg Documented by: Naloxone HCl (Narcan) 0.1 mg IVPUSH ONETIME PRN PRN Reason: Respiratory Depression Stop: 10/01/20 19:15 Nifedipine (Procardia Xl) 30 mg PO BID RICHARD Last Admin: 09/30/20 21:05 Dose: 30 mg Documented by: Ondansetron HCl (Zofran) 4 mg IVPUSH Q6H PRN PRN Reason: Nausea/Vomiting Ondansetron HCl (Zofran) 4 mg IVPUSH Q4H PRN PRN Reason: Nausea/Vomiting Ondansetron HCl (Zofran) 4 mg IVPUSH Q6H PRN PRN Reason: Nausea Oxycodone/Acetaminophen (Percocet 325-5 Mg) 1 tab PO Q4H PRN PRN Reason: Pain (moderate 4-6) Oxycodone/Acetaminophen (Percocet 325-5 Mg) 2 tab PO Q4H PRN PRN Reason: Pain (moderate 4-6) Oxycodone/Acetaminophen (Percocet 325-5 Mg) 2 tab PO Q6H PRN PRN Reason: Pain (moderate 4-6) Oxytocin (Pitocin) 10 unit IM ASDIRECTED PRN PRN Reason: Excessive Vaginal Bleeding Sodium Chloride (Saline Flush) 10 ml FLUSH ASDIRECTED PRN PRN Reason: Keep Vein Open Sodium Chloride (Saline Flush) 2.5 ml FLUSH ASDIRECTED PRN PRN Reason: Keep Vein Open Sodium Chloride (Normal Saline) 10 ml IV ASDIRECTED PRN PRN Reason: IV Use Sterile Water (Sterile Water For Irrigation) 1,000 ml IRR ASDIRECTED PRN PRN Reason: delivery Terbutaline Sulfate (Brethine) 0.25 mg SUBCUT ASDIRECTED PRN PRN Reason: Tacysystole Discontinued Medications Cefazolin Sodium/Dextrose (Ancef) Confirm Administered Dose 2 gm IV .STK-MED ONE Stop: 09/30/20 16:01 Citric Acid/Sodium Citrate (Bicitra Solution) 30 ml PO ONETIME ONE Stop: 09/30/20 10:44 Ephedrine Sulfate (Ephedrine Sulfate) Confirm Administered Dose 50 mg .ROUTE .STK-MED ONE Stop: 09/30/20 16:17 Cefazolin Sodium/Dextrose 2 gm (/ Premix) 50 mls @ 100 mls/hr IV ONETIME ONE Stop: 09/30/20 15:29 Last Admin: 09/30/20 19:30 Dose: Not Given Documented by: Ketorolac Tromethamine (Toradol) Confirm Administered Dose 30 mg .ROUTE .STK-MED ONE Stop: 09/30/20 16:31 Morphine Sulfate (Duramorph Pf) Confirm Administered Dose 10 mg .ROUTE .STK-MED ONE Stop: 09/30/20 15:09 Octyl Cyanoacrylate (Dermabond Advance) Confirm Administered Dose 1 applic .ROUTE .STK-MED ONE Stop: 09/30/20 15:06 Last Admin: 09/30/20 19:30 Dose: Not Given Documented by: Ondansetron HCl (Zofran) Confirm Administered Dose 4 mg .ROUTE .STK-MED ONE Stop: 09/30/20 15:09 Oxytocin (Pitocin) Confirm Administered Dose 20 unit .ROUTE .STK-MED ONE Stop: 09/30/20 15:09 - Infant Interaction Infant Disposition, : [place] to Nursery Interaction: Holding Feeding: Attempted ; Nursed Fair/Poor Support Person: Significant Other - Recovery Exam Fundal Tone: Firm Fundal Level: At Umbilicus Fundal Placement: Midline Lochia Amount: Scant Lochia Color: Rubra/Red Perineum Description: Intact, Minimal Bruising/Swelling Episiotomy/Laceration: None Bladder Status: Indwelling Catheter in Place Urinary Elimination: Other (see below) Other Urinary Elimination, : catheter removed upon assessment - Exam General: Alert, Oriented HEENT: Pupils Equal Neck: Supple Lungs: Clear to Auscultation, Normal Respiratory Effort Cardiovascular: Regular Rate, Regular Rhythm GI/Abdominal Exam: Normal Bowel Sounds, Soft, Non-Tender, No Organomegaly, No Distention, No Abnormal Bruit, No Mass, Pelvis Stable Extremities: Normal Inspection, Normal Range of Motion, Non-Tender, No Pedal Edema, Normal Capillary Refill Skin: Warm, Dry, Intact Wound/Incisions: Healing Well Neurological: No New Focal Deficit Psy/Mental Status: Alert, Normal Affect, Normal Mood - Problem List Review Problem List Initiated/Reviewed/Updated: Yes - My Orders Last 24 Hours: My Active Orders 09/30/20 10:43 Verify Patient Consent Obtain [RC] ASDIRECTED Schedule Procedure [COMM] Per Unit Routine 09/30/20 10:45 Lactated Ringers [Ringers, Lactated] 1,000 ml IV BOLUS Oxytocin/0.9 % Sodium Chloride [Oxytocin 30 Unit/500 ML-NS] 30 unit in 500 ml IV TITRATE 09/30/20 16:00 Notify Provider Vital Signs [RC] PRN 09/30/20 16:39 Patient Status [ADT] Routine Ambulate [RC] PER UNIT ROUTINE Communication Order [RC] PER UNIT ROUTINE Communication Order [RC] PER UNIT ROUTINE Communication Order [RC] Per Unit Routine May Shower [RC] ASDIRECTED RT Incentive Spirometry [RC] Q2HWA Acetaminophen/oxyCODONE [Percocet 325-5 MG] 1 tab PO Q4H PRN Acetaminophen/oxyCODONE [Percocet 325-5 MG] 2 tab PO Q4H PRN Ibuprofen [Motrin] 800 mg PO Q8H PRN Lanolin [Lansinoh HPA] See Dose Instructions TOP ASDIRECTED PRN Methylergonovine [Methergine] 0.2 mg IM ONETIME PRN Ondansetron [Zofran] 4 mg IVPUSH Q4H PRN Oxytocin [Pitocin] 10 unit IM ASDIRECTED PRN Tranexamic Acid [Cyklokapron] 1,000 mg Sodium Chloride 0.9% [Normal Saline] 100 ml IV ONETIME bisacodyL [Dulcolax] 10 mg RECTAL ONETIME PRN diphenhydrAMINE [Benadryl] 25 mg IVPUSH Q6H PRN miSOPROStoL [Cytotec] 1,000 mcg RECTAL ONETIME PRN Assess Lochia [WOMSER] Per Unit Routine Assess Uterine Involution [WOMSER] Per Unit Routine Breast Pump [WOMSER] Per Unit Routine Peripheral IV Discontinue [OM.PC] Routine Sequential Compression Device [OM.PC] Per Unit Routine 09/30/20 16:40 Antiembolic Devices [RC] PER UNIT ROUTINE 09/30/20 16:45 Ketorolac [Toradol] 30 mg IVPUSH Q6H Lactated Ringers [Ringers, Lactated] 1,000 ml IV ASDIRECTED 09/30/20 21:00 Docusate Sodium [Colace] 100 mg PO BID - Assessment Assessment:: S/P C/section doing well - Plan Plan:: Admit A: presenting to L&D for IOL at 38 weeks (HOLLY: 10/13/20) due to GDMA2 (currently taking 500 mg metformin TID) and Chronic HTN (treated with Procardia XL 30 mg BID; she is also taking 81 mg aspirin daily). Most recent growth ultrasound on 09/15/20 noted EFW 2982 grams (68th percentile). AB+, Rubella non-immune, and GBS negative. SVE 2cm/60%/-3, soft, posterior per nurse report. P: Anticipate ; epidural PRN; blood glucose q4hr or symptomatic; Dr. Miramontes updated
[2020-10-01] MEDS: NIFEdipine 30 MG Tab.ER PO SCH ×2 (09:10→22:12)
[2020-10-01] MEDS: Docusate Sodium 100 MG Cap PO SCH ×2 (09:10→22:20)
[2020-10-01] MEDS: Ketorolac 30 MG/ML SDV IVPUSH SCH ×2 (10:54→18:10)
[2020-10-01] MEDS ORDERED: NIFEdipine 30 MG Tab.ER PO PRN (22:14)
[2020-10-02] MEDS: Docusate Sodium 100 MG Cap PO SCH ×3 (00:06→22:18)
[2020-10-02] MEDS: Acetaminophen/oxyCODONE 325-5 MG Tab PO PRN ×5 (00:07→22:14)
[2020-10-02] MEDS: Ketorolac 30 MG/ML SDV IVPUSH SCH (08:57)
[2020-10-02] MEDS ORDERED: NIFEdipine 30 MG Tab.ER PO SCH (09:00)
--- NOTE | 2020-10-02 09:02 | PCM.DCSUM1 ---
Discharge Summary - Hospital Course Diagnosis: Stroke: No - Discharge Data Discharge Date: 10/02/20 Discharge Disposition: Home, Self-Care 01 Condition: Good - Referral to Home Health Primary Care Physician: PCP None - Patient Summary/Data Operative Procedure(s) Performed: Primary C/section. - Patient Instructions Diet: Usual Diet as Tolerated Activity: As Tolerated Driving: Do Not Drive Showering/Bathing: May Shower Wound/Incision Care: Keep Operative Site/Wound Site Clean and Dry - Discharge Plan Home Medications: Home Meds NIFEdipine [Nifedipine ER] 30 mg PO BID 05/29/20 [History] Aspirin [Low Dose Aspirin EC] 81 mg PO DAILY 08/25/20 [History] metFORMIN [Glucophage] 500 mg PO TIDAC 08/25/20 [History] Pnv No.95/Ferrous Fum/Folic AC [ Vitamin Tablet] 1 tab PO DAILY 09/07/20 [History] Referrals: [facility] [Outside] Michelle Yi MD [Physician] - 10/15/20 2:30 pm (Follow up appointment on 10/15/2020 at 02:30. Masks are required. ) - Discharge Summary/Plan Comment DC Time >30 min.: Yes - General Info Date of Service: 10/02/20 Functional Status: Reports: Pain Controlled - Review of Systems General: Reports: No Symptoms HEENT: Reports: No Symptoms Pulmonary: Reports: No Symptoms Cardiovascular: Reports: No Symptoms Gastrointestinal: Reports: No Symptoms Genitourinary: Reports: No Symptoms Musculoskeletal: Reports: No Symptoms Skin: Reports: No Symptoms Neurological: Reports: No Symptoms Psychiatric: Reports: No Symptoms - Patient Data Vitals - Most Recent: Last Vital Signs Temp 36.6 C 10/02/20 08:17 Pulse 98 10/02/20 08:17 Resp 18 10/02/20 08:17 BP 129/82 10/02/20 08:17 Pulse Ox 96 10/02/20 08:17 Weight - Most Recent: 123.831 kg Lab Results - Last 24 hrs: Laboratory Results - last 24 hr 09/29/20 10/01/20 10/01/20 Range/Units 00:50 09:09 16:15 POC Glucose 69 104 (60-110) mg/dL RPR Non-Reac (Non-Reac) 10/02/20 10/02/20 Range/Units 00:03 03:56 POC Glucose 134 H 136 H (60-110) mg/dL RPR (Non-Reac) Med Orders - Current: Current Medications Bisacodyl (Dulcolax) 10 mg RECTAL ONETIME PRN PRN Reason: Constipation Butorphanol Tartrate (Stadol) 1 mg IVPUSH Q1H PRN PRN Reason: Pain Last Admin: 09/29/20 07:57 Dose: 1 mg Documented by: Carboprost Tromethamine (Hemabate Ds) 250 mcg IM ASDIRECTED PRN PRN Reason: Post Hemorrhage Diphenhydramine HCl (Benadryl) 25 mg IVPUSH Q6H PRN PRN Reason: Itching or Nausea Docusate Sodium (Colace) 100 mg PO BID [facility] Last Admin: 10/02/20 00:06 Dose: 100 mg Documented by: Emollient Ointment (Lansinoh Hpa) 0 gm TOP ASDIRECTED PRN PRN Reason: Sore Nipples Fentanyl (Sublimaze) 50 mcg IVPUSH Q1H PRN PRN Reason: Pain (severe 7-10) Hydroxyzine Pamoate (Vistaril) 50 mg PO ONETIME PRN PRN Reason: Sleep Last Admin: 09/29/20 21:56 Dose: 50 mg Documented by: Oxytocin/Sodium Chloride (Oxytocin 30 Unit/500 Ml-Ns) 30 unit in 500 mls @ 999 mls/hr IV TITRATE RICHARD Tranexamic Acid 1,000 mg/ (Sodium Chloride) 110 mls @ 660 mls/hr IV ONETIME PRN PRN Reason: Bleeding Lactated Ringer's (Ringers, Lactated) 1,000 mls @ 150 mls/hr IV ASDIRECTED [facility] Last Admin: 09/30/20 00:59 Dose: 75 mls/hr Documented by: Oxytocin/Sodium Chloride (Oxytocin 30 Unit/500 Ml-Ns) 30 unit in 500 mls @ 2 mls/hr IV TITRATE RICHARD; Protocol Lactated Ringer's (Ringers, Lactated) 1,000 mls @ 500 mls/hr IV BOLUS [facility] Last Admin: 09/30/20 14:48 Dose: 999 mls/hr Documented by: Oxytocin/Sodium Chloride (Oxytocin 30 Unit/500 Ml-Ns) 30 unit in 500 mls @ 250 mls/hr IV TITRATE [facility] Lactated Ringer's (Ringers, Lactated) 1,000 mls @ 125 mls/hr IV ASDIRECTED [facility] Last Infusion: 10/01/20 01:08 Dose: 25 mls/hr Documented by: Tranexamic Acid 1,000 mg/ (Sodium Chloride) 110 mls @ 660 mls/hr IV ONETIME PRN PRN Reason: Bleeding Ibuprofen (Motrin) 800 mg PO Q8H PRN PRN Reason: mild pain or fever Lidocaine HCl (Xylocaine 1%) 50 ml INJECT ONETIME PRN PRN Reason: Laceration repair Methylergonovine Maleate (Methergine) 0.2 mg IM ONETIME PRN PRN Reason: Excessive Vaginal Bleeding Misoprostol (Cytotec) 200 mcg PO ONETIME PRN PRN Reason: Post Hemorrhage Misoprostol (Cytotec) 25 mcg VAG Q4H PRN PRN Reason: Cervical Ripening Last Admin: 09/29/20 17:19 Dose: 25 mcg Documented by: Misoprostol (Cytotec) 25 mcg PO Q4H PRN PRN Reason: Cervical Ripening Last Admin: 09/29/20 17:19 Dose: 25 mcg Documented by: Misoprostol (Cytotec) 1,000 mcg RECTAL ONETIME PRN PRN Reason: excessive bleeding Nalbuphine HCl (Nubain) 10 mg IVPUSH Q1H PRN PRN Reason: Pain (severe 7-10) Last Admin: 09/29/20 22:53 Dose: 10 mg Documented by: Nalbuphine HCl (Nubain) 5 mg IVPUSH ASDIRECTED PRN PRN Reason: Itching Last Admin: 10/01/20 01:03 Dose: 5 mg Documented by: Nifedipine (Procardia Xl) 30 mg PO DAILY [facility] Nifedipine (Procardia Xl) 30 mg PO ASDIRECTED PRN PRN Reason: hypertension Ondansetron HCl (Zofran) 4 mg IVPUSH Q6H PRN PRN Reason: Nausea/Vomiting Ondansetron HCl (Zofran) 4 mg IVPUSH Q4H PRN PRN Reason: Nausea/Vomiting Ondansetron HCl (Zofran) 4 mg IVPUSH Q6H PRN PRN Reason: Nausea Oxycodone/Acetaminophen (Percocet 325-5 Mg) 1 tab PO Q4H PRN PRN Reason: Pain (moderate 4-6) Last Admin: 10/02/20 00:07 Dose: 1 tab Documented by: Oxycodone/Acetaminophen (Percocet 325-5 Mg) 2 tab PO Q4H PRN PRN Reason: Pain (moderate 4-6) Last Admin: 10/02/20 04:15 Dose: 2 tab Documented by: Oxycodone/Acetaminophen (Percocet 325-5 Mg) 2 tab PO Q6H PRN PRN Reason: Pain (moderate 4-6) Oxytocin (Pitocin) 10 unit IM ASDIRECTED PRN PRN Reason: Excessive Vaginal Bleeding Sodium Chloride (Saline Flush) 10 ml FLUSH ASDIRECTED PRN PRN Reason: Keep Vein Open Sodium Chloride (Saline Flush) 2.5 ml FLUSH ASDIRECTED PRN PRN Reason: Keep Vein Open Sodium Chloride (Normal Saline) 10 ml IV ASDIRECTED PRN PRN Reason: IV Use Sterile Water (Sterile Water For Irrigation) 1,000 ml IRR ASDIRECTED PRN PRN Reason: delivery Terbutaline Sulfate (Brethine) 0.25 mg SUBCUT ASDIRECTED PRN PRN Reason: Tacysystole Discontinued Medications Cefazolin Sodium/Dextrose (Ancef) Confirm Administered Dose 2 gm IV .STK-MED ONE Stop: 09/30/20 16:01 Citric Acid/Sodium Citrate (Bicitra Solution) 30 ml PO ONETIME ONE Stop: 09/30/20 10:44 Diphenhydramine HCl (Benadryl) 25 mg IVPUSH Q4H PRN PRN Reason: Itching Stop: 10/01/20 19:15 Last Admin: 09/30/20 22:59 Dose: 25 mg Documented by: Ephedrine Sulfate (Ephedrine Sulfate) Confirm Administered Dose 50 mg .ROUTE .STK-MED ONE Stop: 09/30/20 16:17 Cefazolin Sodium/Dextrose 2 gm (/ Premix) 50 mls @ 100 mls/hr IV ONETIME ONE Stop: 09/30/20 15:29 Last Admin: 09/30/20 19:30 Dose: Not Given Documented by: Ketorolac Tromethamine (Toradol) Confirm Administered Dose 30 mg .ROUTE .STK-MED ONE Stop: 09/30/20 16:31 Ketorolac Tromethamine (Toradol) 30 mg IVPUSH Q6H [facility] Stop: 10/01/20 16:46 Last Admin: 10/02/20 08:57 Dose: Not Given Documented by: Morphine Sulfate (Duramorph Pf) Confirm Administered Dose 10 mg .ROUTE .STK-MED ONE Stop: 09/30/20 15:09 Naloxone HCl (Narcan) 0.1 mg IVPUSH ONETIME PRN PRN Reason: Respiratory Depression Stop: 10/01/20 19:15 Nifedipine (Procardia Xl) 30 mg PO BID [facility] Last Admin: 10/01/20 22:12 Dose: Not Given Documented by: Octyl Cyanoacrylate (Dermabond Advance) Confirm Administered Dose 1 applic .ROUTE .STK-MED ONE Stop: 09/30/20 15:06 Last Admin: 09/30/20 19:30 Dose: Not Given Documented by: Ondansetron HCl (Zofran) Confirm Administered Dose 4 mg .ROUTE .STK-MED ONE Stop: 09/30/20 15:09 Oxytocin (Pitocin) Confirm Administered Dose 20 unit .ROUTE .STK-MED ONE Stop: 09/30/20 15:09 - Exam General: Reports: Alert, Oriented HEENT: Reports: Pupils Equal, Pupils Reactive, EOMI, Mucous Membr. Moist/[place] Neck: Reports: Supple Lungs: Reports: Clear to Auscultation, Normal Respiratory Effort Cardiovascular: Reports: Regular Rate, Regular Rhythm GI/Abdominal Exam: Normal Bowel Sounds, Soft, Non-Tender, No Organomegaly, No Distention, No Abnormal Bruit, No Mass, Pelvis Stable (Female) Exam: Normal External Exam, Normal Speculum Exam, Normal Bimanual Exam Rectal (Female) Exam: Normal Exam, Normal Rectal Tone Back Exam: Reports: Normal Inspection, Full Range of Motion Extremities: Normal Inspection, Normal Range of Motion, Non-Tender, No Pedal Edema, Normal Capillary Refill Skin: Reports: Warm, Dry, Intact Wound/Incisions: Reports: Healing Well Neurological: Reports: No New Focal Deficit Psy/Mental Status: Reports: Alert, Normal Affect, Normal Mood
[2020-10-02] MEDS: Ibuprofen 800 MG Tab PO PRN ×2 (11:19→22:13)
[2020-10-02] MEDS ORDERED: NIFEdipine 30 MG Tab.ER PO ONE (21:17)
[2020-10-02] MEDS: Measles, Mumps & Rubella Vaccine 0.5 ML SDV SUBCUT ONE ×2 (22:19→22:25)
== END 2020-10-02 22:30 | disposition home or self-care (01) | DRG 788 ==
LOC: MW.OBCHECK 00:14 → MW.OB 00:19 → OBSVTOIN 09-30 16:39 → MW.OB 09-30 20:04
PROVIDERS: ADMIT Obstetrics & Gynecology; ATTEND Obstetrics & Gynecology
PROC: 10D00Z1 Extraction of Products of Conception, Low, Open Approach (ICD-10-PCS; principal; 2020-09-30)
PROC: 3E0P7VZ Introduction of Hormone into Female Reproductive, Via Natural or Artificial Opening (ICD-10-PCS; 2020-09-30)
DX: O24.425 Gestational diabetes mellitus in childbirth, controlled by oral hypoglycemic drugs (principal); Z37.0 Single live birth; Z3A.38 38 weeks gestation of pregnancy; O16.4 Unspecified maternal hypertension, complicating childbirth
CPT/HCPCS: 01961; 36415; 59025; 82962; 85014; 85018; 85027; 86592; 86850; 86900; 86901; 88307; 90471; 90707; A9270-GY; J0595; J0690; J1200; J1885; J2270; J2300; J2405; J2590; J7120

== ENCOUNTER 2022-10-23 12:20 | Emergency (ER) | payer MEDICAID ==
[2022-10-23] MEDS ORDERED: Metoclopramide 10 MG/2 ML SDV IVPUSH ONE (14:27)
[2022-10-23] MEDS ORDERED: Sodium Chloride 0.9% 1,000 ML IV ONE ×2 (14:27→19:55)
[2022-10-23 15:59] LABS: CARBON DIOXIDE,CO2 27.2 mmol/L (21.0-32.0); POTASSIUM,K 3.2 mmol/L (3.5-5.1)
[2022-10-23] MEDS ORDERED: Potassium Chloride 20 MEQ Tab.ER PO STA (16:09)
[2022-10-23 16:12] LABS: CORONAVIRUS COVID-19 NAA NEGATIVE (NEGATIVE); INFLUENZA A NAA NEGATIVE (NEGATIVE); INFLUENZA B NAA NEGATIVE (NEGATIVE); RESPIRATORY SYNCYTIAL VIR NAA NEGATIVE (NEGATIVE)
[2022-10-23] MEDS ORDERED: Proparacaine 0.5% Ophth Soln 15 ML Bottle EYERT STA (17:25)
[2022-10-23] MEDS ORDERED: Acetaminophen 500 MG Tab PO ONE (17:27)
[2022-10-23] MEDS ORDERED: Tetracaine HCl/PF 0.5% 4 ML Bottle ONE (18:13)
[2022-10-23] MEDS ORDERED: Tetracaine HCl/PF 0.5% 4 ML Bottle EYEBOTH STA (18:13)
[2022-10-23] MEDS ORDERED: Iopamidol 755 Mg/ML 100 ML Bottle IVPUSH ONE (18:29)
[2022-10-23] MEDS ORDERED: Ketorolac 30 MG/ML SDV IVPUSH ONE (19:54)
[2022-10-23] MEDS ORDERED: diphenhydrAMINE 50 MG/ML SDV IVPUSH ONE (19:54)
[2022-10-23] MEDS ORDERED: Dexamethasone 4 MG/ML SDV IVPUSH ONE (19:55)
== END 2022-10-23 21:36 | disposition home or self-care (01) ==
LOC: MW.ED 12:20
DX: G43.909 Migraine, unspecified, not intractable, without status migrainosus (principal); E11.9 Type 2 diabetes mellitus without complications; Z88.1 Allergy status to other antibiotic agents; Z79.82 Long term (current) use of aspirin; Z79.84 Long term (current) use of oral hypoglycemic drugs; Z20.822 Contact with and (suspected) exposure to COVID-19
CPT/HCPCS: 0241U; 36415; 70450; 70496; 70498; 80053; 84703; 85025; 96361; 96374; 96375; 99284; A9270; J1100; J1200; J1885; J2765; J7030

== ENCOUNTER 2024-08-28 06:42 | Day surgery (SDC) | payer MEDICAID, OTHER ==
[~2024-08-28 06:42] MED LIST: Sodium Chloride 0.9% 10 ML Syringe FLUSH PRN; Sodium Chloride 0.9% 2.5 ML Syringe FLUSH PRN; Sodium Chloride 0.9% 20 ML SDV IV PRN
[2024-08-28] MEDS ORDERED: Ondansetron 4 MG/2 ML SDV IVPUSH PRN (06:51)
[2024-08-28] MEDS ORDERED: Morphine 2 MG/ML SYRINGE IVPUSH PRN (06:51)
[2024-08-28] MEDS ORDERED: fentaNYL 50 MCG/ML SDV IVPUSH PRN (06:51)
[2024-08-28] MEDS ORDERED: Albuterol 0.083% 2.5 MG/3 ML Neb Soln NEB PRN (06:51)
[2024-08-28] MEDS ORDERED: Metoclopramide 10 MG/2 ML SDV IVPUSH PRN (06:51)
[2024-08-28] MEDS ORDERED: Naloxone 0.4 MG/ML SDV IVPUSH PRN (06:51)
[2024-08-28] MEDS ORDERED: Phenylephrine HCl In 0.9% NaCl 1 MG/10 ML Syringe IVPUSH PRN (06:51)
[2024-08-28] MEDS ORDERED: HYDROmorphone 1 MG/ML Syringe IVPUSH PRN (06:51)
[2024-08-28] MEDS: Lactated Ringers 1,000 ML IV SCH (08:39)
[2024-08-28] MEDS ORDERED: fentaNYL 100 MCG/2 ML SDV ONE (09:13)
[2024-08-28] MEDS ORDERED: Propofol 200 MG/20 ML SDV ONE (09:13)
[2024-08-28] MEDS ORDERED: propofoL 50 ML ONE (09:15)
[2024-08-28] MEDS ORDERED: Bupivacaine 0.5% 30 ML SDV ONE (09:19)
[2024-08-28] MEDS ORDERED: dexmedeTOMIDine HCl 200 MCG/2 ML SDV ONE (09:25)
[2024-08-28] MEDS ORDERED: Bupivacaine 0.25% 30 ML SDV ONE (09:29)
[2024-08-28] MEDS ORDERED: Ropivacaine 0.5% 5 MG/ML 30 ML SDV ONE (09:29)
[2024-08-28] MEDS ORDERED: Famotidine 20 MG/2 ML SDV ONE (09:37)
[2024-08-28] MEDS ORDERED: Rocuronium Bromide 50 MG/5 ML Syringe ONE (09:38)
[2024-08-28] MEDS ORDERED: ceFAZolin 2 GM Vial ONE (09:52)
[2024-08-28] MEDS ORDERED: Ondansetron 4 MG/2 ML SDV ONE (09:54)
[2024-08-28] MEDS ORDERED: Dexamethasone 4 MG/ML 5 ML MDV ONE (09:54)
[2024-08-28] MEDS ORDERED: Ketorolac 30 MG/ML SDV ONE (09:55)
[2024-08-28] MEDS ORDERED: Phenylephrine HCl In 0.9% NaCl 1 MG/10 ML Syringe ONE (10:03)
[2024-08-28] MEDS ORDERED: Sugammadex Sodium 200 MG/2 ML VIAL IV ONE (10:13)
== END 2024-08-28 13:30 | disposition home or self-care (01) ==
LOC: MW.SDS 06:42
PROVIDERS: ATTEND Surgery
DX: K42.9 Umbilical hernia without obstruction or gangrene (principal); N83.299 Other ovarian cyst, unspecified side; K21.9 Gastro-esophageal reflux disease without esophagitis; I10 Essential (primary) hypertension; E66.01 Morbid (severe) obesity due to excess calories; Z79.899 Other long term (current) drug therapy; Z68.41 Body mass index [BMI] 40.0-44.9, adult; F17.210 Nicotine dependence, cigarettes, uncomplicated
CPT/HCPCS: 49591; 64488; 81025; J0131; J0665; J0690; J1100; J1885; J2371; J2405; J2704; J2795; J3010; J3490; J7120

== ENCOUNTER 2024-08-29 20:28 | Emergency (ER) | payer MEDICAID ==
[2024-08-29 21:38] LABS: BASOPHILS ABSOLUTE AUTO 0.03 K/uL (0.00-0.20); BASOPHILS PERCENT AUTO 0.4 % (0.0-1.0); EOSINOPHILS ABSOLUTE AUTO 0.05 K/uL (0.00-0.45); EOSINOPHILS PERCENT AUTO 0.7 % (0.0-6.0); HEMATOCRIT 37.8 % (37.0-47.0); HEMOGLOBIN 13.1 g/dL (12.0-16.0); IMMATURE GRAN ABSOLUTE AUTO 0.06 K/uL (0.00-0.05); IMMATURE GRAN PERCENT AUTO 0.8 % (0.0-0.4); LYMPHOCYTES ABSOLUTE AUTO 2.66 K/uL (1.00-4.80); LYMPHOCYTES PERCENT AUTO 36.9 % (24.0-44.0); MEAN CORPUSCULAR HEMOGLOBIN 29.2 pg (28.0-32.0); MEAN CORPUSCULAR HGB CONC 34.7 g/dL (32.0-36.0); MEAN CORPUSCULAR VOLUME 84.4 fL (83.0-99.0); MEAN PLATELET VOLUME 9.5 fL (9.4-12.3); MONOCYTES ABSOLUTE AUTO 0.54 K/uL (0.00-0.80); MONOCYTES PERCENT AUTO 7.5 % (0.0-8.0); NEUTROPHILS ABSOLUTE AUTO 3.86 K/uL (1.80-7.70); NEUTROPHILS PERCENT AUTO 53.7 % (41.0-71.0); PLATELET COUNT,PLT 312 K/uL (150-400); RED BLOOD CELL COUNT 4.48 M/uL (4.10-5.30)
[2024-08-29 22:10] LABS: A/G RATIO 0.8 (0.9-1.6); ALANINE AMINOTRANSFERASE,ALT 32 IU/L (14-63); ALBUMIN 3.2 g/dL (3.4-5.0); ALKALINE PHOSPHATASE 85 U/L (46-116); ASPARTATE AMNIOTRANSFERASE,AST 21 IU/L (15-37); BILIRUBIN TOTAL 0.2 mg/dL (0.2-1.0); BLOOD UREA NITROGEN,BUN 18 mg/dL (7.0-18.0); CALCIUM 8.4 mg/dL (8.5-10.1); CARBON DIOXIDE,CO2 28.9 mmol/L (21.0-32.0); CHLORIDE,CL 98 mmol/L (98-107); CREATININE 1.1 mg/dL (0.6-1.0); GLUCOSE RANDOM 253 mg/dL (74-106); PRO B-TYPE NATRIUR PEPT,BNPPRO 452 pg/mL (0-125); SODIUM,NA 137 mmol/L (136-145)
[2024-08-29 22:19] LABS: ESTIMATED GFR 69 mL/min (>60); POTASSIUM,K 2.3 mmol/L (3.5-5.1)
[2024-08-29] MEDS: Potassium Chloride 20 MEQ Tab.ER PO ONE (22:26)
[2024-08-29 23:57] LABS: BLOOD UREA NITROGEN,BUN 17 mg/dL (7.0-18.0); CALCIUM 8.4 mg/dL (8.5-10.1); CARBON DIOXIDE,CO2 32.8 mmol/L (21.0-32.0); CHLORIDE,CL 99 mmol/L (98-107); GLUCOSE RANDOM 191 mg/dL (74-106); POTASSIUM,K 2.5 mmol/L (3.5-5.1); SODIUM,NA 138 mmol/L (136-145)
[2024-08-30 00:10] LABS: ESTIMATED GFR 77 mL/min (>60)
[2024-08-30] MEDS: Potassium Chloride 20 MEQ Tab.ER PO ONE (00:30)
[2024-08-30 01:27] LABS: BLOOD UREA NITROGEN,BUN 15 mg/dL (7.0-18.0); CALCIUM 8.4 mg/dL (8.5-10.1); CARBON DIOXIDE,CO2 32.4 mmol/L (21.0-32.0); CHLORIDE,CL 100 mmol/L (98-107); ESTIMATED GFR 77 mL/min (>60); GLUCOSE RANDOM 171 mg/dL (74-106); POTASSIUM,K 2.9 mmol/L (3.5-5.1); SODIUM,NA 138 mmol/L (136-145)
== END 2024-08-30 01:47 | disposition home or self-care (01) ==
LOC: MW.ED 20:28
DX: J06.9 Acute upper respiratory infection, unspecified (principal); B97.89 Other viral agents as the cause of diseases classified elsewhere; E87.6 Hypokalemia; F17.210 Nicotine dependence, cigarettes, uncomplicated; R79.89 Other specified abnormal findings of blood chemistry; R07.9 Chest pain, unspecified; I10 Essential (primary) hypertension; K21.9 Gastro-esophageal reflux disease without esophagitis; E11.9 Type 2 diabetes mellitus without complications; E66.9 Obesity, unspecified; Z79.84 Long term (current) use of oral hypoglycemic drugs; Z79.899 Other long term (current) drug therapy; Z79.4 Long term (current) use of insulin; Z88.1 Allergy status to other antibiotic agents
CPT/HCPCS: 36415; 71045; 80048; 80053; 83735; 83880; 84484; 84703; 85025; 85379; 87428; 93005; 99285; A9270; 93010

== ENCOUNTER 2024-12-08 18:54 | Emergency (ER) | payer MEDICAID ==
[2024-12-08] MEDS: Ondansetron 4 MG Tab.DIS PO ONE (22:17)
[2024-12-08] MEDS: Acetaminophen/HYDROcodone 325-5 MG Tab PO ONE (22:17)
== END 2024-12-08 22:15 | disposition home or self-care (01) ==
LOC: MW.ED 18:54
DX: S93.402A Sprain of unspecified ligament of left ankle, initial encounter (principal); I10 Essential (primary) hypertension; K21.9 Gastro-esophageal reflux disease without esophagitis; E11.9 Type 2 diabetes mellitus without complications; E66.9 Obesity, unspecified; F17.210 Nicotine dependence, cigarettes, uncomplicated; Z79.899 Other long term (current) drug therapy; Z79.84 Long term (current) use of oral hypoglycemic drugs; Z88.1 Allergy status to other antibiotic agents; Z75.8 Other problems related to medical facilities and other health care; Z68.41 Body mass index [BMI] 40.0-44.9, adult; X50.9XXA Other and unspecified overexertion or strenuous movements or postures, initial encounter
CPT/HCPCS: 73610; 99283; A9270